=== PATIENT | female | born 1945 | race Caucasian/White ===

== ENCOUNTER 2018-05-27 12:06 | Emergency (ER) | payer MEDICARE, OTHER ==
[~2018-05-27] VITALS: Ht 160 cm; Wt 70.3 kg
[~2018-05-27 12:06] MED LIST: ALPRAZOLAM 0.50.5 MG; CELEXA40 MG; ESTRACE0.5 MG; HYDROCODON-ACE1 EAC5; TREXIMET 85-501 EACH; VIBRAMYCIN 100100 M2; VICODIN ES 7.51 EACH PO
[2018-05-27] MEDS ORDERED: NEURONTIN600 MG PO (12:30)
[2018-05-27] MEDS ORDERED: MOBIC15 MG PO (12:31)
[2018-05-27] MEDS ORDERED: ZESTORETIC 10-1 EACH PO (12:32)
[2018-05-27] MEDS ORDERED: IBUPROFEN 600600 M1 PO (13:30)
[2018-05-27] MEDS ORDERED: NORCO 5-325 TA1 EACH PO (13:30)
[2018-05-27 14:18] VITALS: BP 149/59
== END 2018-05-27 14:19 | disposition home or self-care (01) ==
LOC: M.ERS 12:06
DX: S52.592A Other fractures of lower end of left radius, initial encounter for closed fracture (principal); F32.9 Major depressive disorder, single episode, unspecified; Z90.710 Acquired absence of both cervix and uterus; Z90.49 Acquired absence of other specified parts of digestive tract; Z88.6 Allergy status to analgesic agent; Z88.2 Allergy status to sulfonamides; Z88.8 Allergy status to other drugs, medicaments and biological substances; W01.0XXA Fall on same level from slipping, tripping and stumbling without subsequent striking against object, initial encounter; Y93.89 Activity, other specified; Y92.89 Other specified places as the place of occurrence of the external cause; Y99.8 Other external cause status